=== PATIENT | female | born 1975 | race Caucasian/White ===

== ENCOUNTER 2023-09-15 15:01 | Emergency (ER) | payer MEDICAID ==
[~2023-09-15] VITALS: Ht 162.6 cm; Wt 75.0 kg
[2023-09-15] MEDS ORDERED: ondansetron 4mg rapidly disintigrating tab PO ONE (16:45)
[2023-09-15] MEDS: normal saline 1000ML IV soln IVB ONE (16:56)
[2023-09-15] MEDS: ondansetron/PF 4mg/2ml inj IV ONE (16:56)
[2023-09-15] MEDS: normal saline 1000ml 1,000 ML IV ONE (16:56)
[2023-09-15] MEDS: diphenhydrAMINE 50 mg/ml inj IV ONE (18:04)
[2023-09-15] MEDS: diazepam inj 5 MG/ML inj. IV ONE (18:04)
[2023-09-15 18:08] LABS: HEMATOCRIT 49.1 % (35.0-45.0); HEMOGLOBIN 16.1 g/dl (12.0-16.0)
[2023-09-15 18:09] LABS: BASOPHILS % (AUTO) 0.3 % (0-1); EOSINOPHILS # (AUTO) 0.1 X10'3 (0-0.9); EOSINOPHILS % (AUTO) 0.6 % (0-6); LYMPHOCYTES # (AUTO) 0.9 X10'3 (1.1-4.8); LYMPHOCYTES % (AUTO) 6.4 % (21-51); MEAN CORPUSCULAR HEMOGLOBIN 29.9 PG (27.0-31.0); MEAN CORPUSCULAR HGB CONC 32.7 g/dL (33.0-36.5); MEAN CORPUSCULAR VOLUME 91.3 FL (78-98); MEAN PLATELET VOLUME 7.1 FL (7.4-10.4); MONOCYTES # (AUTO) 0.7 X10'3 (0-0.9); MONOCYTES % (AUTO) 5.3 % (2-12); NEUTROPHILS # (AUTO) 11.8 X10'3 (1.8-7.7); NEUTROPHILS % (AUTO) 87.4 % (42-75); PLATELET COUNT 389 X10'3 (140-440); RED BLOOD COUNT 5.38 X10'6 (4.20-5.60); RED CELL DISTRIBUTION WIDTH 14.8 % (11.5-14.5); WHITE BLOOD COUNT 13.5 X10'3 (4.5-11.0)
[2023-09-15 18:17] LABS: ALBUMIN 3.5 G/DL (3.4-5.0); ANION GAP 14 (8-16); BLOOD UREA NITROGEN 12 MG/DL (7-18); BUN/CREATININE RATIO 13.8 (10.0-20.0); CALCIUM 8.7 MG/DL (8.5-10.1); CHLORIDE 106 MMOL/L (99-107); CREATININE 0.87 MG/DL (0.40-0.90); ETHANOL 123 MG/DL (<10); GLUCOSE 87 MG/DL (70-104); SODIUM 145 MMOL/L (135-145); TOTAL CARBON DIOXIDE 24.9 MMOL/L (24-32); eCRCL 68 ML/MIN; eGFR 69 ML/MIN
[2023-09-15 18:20] LABS: POTASSIUM 3.6 MMOL/L (3.5-5.1)
[2023-09-15] MEDS: mag hydrox/Alum hydrox/simeth 30ml oral suspension PO ONE (19:33)
[2023-09-15] MEDS: LIDOcaine 2% Viscous 15ml cup MM ONE (19:33)
[2023-09-15] MEDS: glycopyrrolate 0.2mg/ml inj IV ONE (19:34)
[2023-09-15 19:42] VITALS: RESP 17
[2023-09-15] MEDS: CefTRIAXone 2gm/D5W 50ml BAG 50 ML IV ONE (19:58)
[2023-09-15 20:25] LABS: BILIRUBIN,URINE NEGATIVE (Neg); CLARITY,URINE CLEAR (Clear); COLOR,URINE YELLOW (Yellow); GLUCOSE, URINE NEGATIVE (Neg); KETONES,URINE TRACE mg/dl (Neg); LEUKOCYTE ESTERASE ,URINE TRACE (Neg); NITRITES, URINE NEGATIVE (Neg); OCCULT BLOOD,URINE NEGATIVE (Neg); PROTEIN,URINE NEGATIVE (Neg); UROBILINOGEN,URINE 0.2 E.U/dL (0.2-1.0)
[2023-09-15 20:26] LABS: UA COLLECTION TYPE URINAL; URINE HCG NEGATIVE (NEG)
[2023-09-15 20:34] LABS: SQUAMOUS EPITHELIAL CELL,UR FEW /LPF (FEW)
[2023-09-15 20:35] LABS: BACTERIA,URINE FEW /HPF (Neg); RBC,URINE NONE SEEN /HPF (0-2); WBC,URINE 0-4 /HPF (0-4)
[2023-09-15 20:36] LABS: HYALINE CASTS 0-3 /LPF (NEGATIVE)
[2023-09-15 20:48] LABS: URINE AMPHETAMINE SCREEN POSITIVE (Neg); URINE BARBITUATE SCREEN NEGATIVE (Neg); URINE BENZODIAZEPINES SCREEN NEGATIVE (Neg); URINE CANNABINOID SCREEN NEGATIVE (Neg); URINE COCAINE SCREEN NEGATIVE (Neg); URINE METHADONE SCREEN NEGATIVE (Neg); URINE OPIATE SCREEN NEGATIVE (Neg); URINE PHENCYCLIDINE SCREEN NEGATIVE (Neg)
[2023-09-16 05:13] VITALS: BP 149/91; PULSE 98; TEMP 97.1; O2SAT 98
== END 2023-09-16 05:20 | disposition home or self-care (01) ==
LOC: ER 15:02 → EDBD 15:02 → ER 09-16 05:20
DX: E86.0 Dehydration (principal); Z20.822 Contact with and (suspected) exposure to COVID-19; F15.10 Other stimulant abuse, uncomplicated; R10.13 Epigastric pain
CPT/HCPCS: 36415; 80048; 80305; 80320; 81001; 81025; 84145; 85025; 87088; 87811; 96361; 96365; 96375; 99285; J0696; J1200; J2405; J3490; J7030

== ENCOUNTER 2023-09-19 14:21 | Emergency (ER) | payer MEDICAID ==
[~2023-09-19] VITALS: Ht 162.6 cm; Wt 48.0 kg
[2023-09-19 14:53] VITALS: TEMP 98
[2023-09-19] MEDS ORDERED: ketorolac trometh. 30mg/ml inj. IV ONE (16:50)
[2023-09-19] MEDS ORDERED: ketorolac tromethamine 15mg/ml inj. IV ONE (16:55)
[2023-09-19] MEDS: ketorolac tromethamine 15mg/ml inj. IM ONE (17:47)
[2023-09-19 17:51] LABS: ANION GAP 11 (8-16); BASOPHILS % (AUTO) 0.5 % (0-1); BLOOD UREA NITROGEN 11 MG/DL (7-18); BUN/CREATININE RATIO 12.5 (10.0-20.0); CALCIUM 8.1 MG/DL (8.5-10.1); CHLORIDE 104 MMOL/L (99-107); CREATININE 0.88 MG/DL (0.40-0.90); EOSINOPHILS # (AUTO) 0.1 X10'3 (0-0.9); EOSINOPHILS % (AUTO) 2.4 % (0-6); ETHANOL 26 MG/DL (<10); GLUCOSE 97 MG/DL (70-104); HEMOGLOBIN 14.2 g/dl (12.0-16.0); LYMPHOCYTES # (AUTO) 1.7 X10'3 (1.1-4.8); LYMPHOCYTES % (AUTO) 30.1 % (21-51); MEAN CORPUSCULAR HEMOGLOBIN 30.4 PG (27.0-31.0); MEAN CORPUSCULAR HGB CONC 33.7 g/dL (33.0-36.5); MEAN CORPUSCULAR VOLUME 90.3 FL (78-98); MEAN PLATELET VOLUME 6.5 FL (7.4-10.4); MONOCYTES # (AUTO) 0.8 X10'3 (0-0.9); MONOCYTES % (AUTO) 13.5 % (2-12); NEUTROPHILS # (AUTO) 3.1 X10'3 (1.8-7.7); NEUTROPHILS % (AUTO) 53.5 % (42-75); PLATELET COUNT 327 X10'3 (140-440); RED BLOOD COUNT 4.65 X10'6 (4.20-5.60); RED CELL DISTRIBUTION WIDTH 14.7 % (11.5-14.5); SALICYLATE 1.2 MG/DL (4.0-20.0); SODIUM 142 MMOL/L (135-145); TOTAL CARBON DIOXIDE 27.3 MMOL/L (24-32); WHITE BLOOD COUNT 5.7 X10'3 (4.5-11.0); eCRCL 59 ML/MIN; eGFR 68 ML/MIN
[2023-09-19 17:53] LABS: ACETAMINOPHEN < 2.0 UG/ML (10-30)
[2023-09-19 17:55] LABS: POTASSIUM 2.9 MMOL/L (3.5-5.1)
[2023-09-19 18:00] LABS: URINE HCG NEGATIVE (NEG)
[2023-09-19] MEDS: potassium Cl 20 mEq SR tablet PO ONE (18:10)
[2023-09-19] MEDS: potassium chloride 8mEq ER tablet PO ONE (18:11)
[2023-09-19 18:13] LABS: URINE AMPHETAMINE SCREEN POSITIVE (Neg); URINE BARBITUATE SCREEN NEGATIVE (Neg); URINE BENZODIAZEPINES SCREEN NEGATIVE (Neg); URINE CANNABINOID SCREEN NEGATIVE (Neg); URINE COCAINE SCREEN NEGATIVE (Neg); URINE METHADONE SCREEN NEGATIVE (Neg); URINE OPIATE SCREEN NEGATIVE (Neg); URINE PHENCYCLIDINE SCREEN NEGATIVE (Neg)
[2023-09-19 18:15] LABS: BILIRUBIN,URINE NEGATIVE (Neg); CLARITY,URINE CLOUDY (Clear); COLOR,URINE YELLOW (Yellow); GLUCOSE, URINE NEGATIVE (Neg); KETONES,URINE NEGATIVE (Neg); LEUKOCYTE ESTERASE ,URINE NEGATIVE (Neg); NITRITES, URINE NEGATIVE (Neg); OCCULT BLOOD,URINE NEGATIVE (Neg); PROTEIN,URINE NEGATIVE (Neg)
[2023-09-19 18:27] LABS: UA COLLECTION TYPE NON-SPECIFIED
[2023-09-19 18:29] LABS: RENAL CELLS, URINE FEW /HPF; SQUAMOUS EPITHELIAL CELL,UR MANY /LPF (FEW)
[2023-09-19 18:30] LABS: BACTERIA,URINE 3+ /HPF (Neg); CAL OXALATE CRYSTALS 4+ /HPF (NEGATIVE); MUCUS STRANDS MANY /LPF (Neg); RBC,URINE 0-2 /HPF (0-2); WBC,URINE 0-4 /HPF (0-4)
[2023-09-19 19:50] VITALS: BP 124/83; PULSE 87; RESP 16; O2SAT 99
== END 2023-09-19 20:54 | disposition home or self-care (01) ==
LOC: ER 14:21
DX: E87.6 Hypokalemia (principal); F19.10 Other psychoactive substance abuse, uncomplicated; Z59.00 Homelessness unspecified; F32.A Depression, unspecified; R45.1 Restlessness and agitation
CPT/HCPCS: 36415; 80048; 80305; 80320; 80329; 81001; 81025; 84132; 85025; 96372; 99285; J1885

== ENCOUNTER 2024-10-09 21:01 | Emergency (ER) | payer MEDICAID ==
[~2024-10-09] VITALS: Ht 162.6 cm; Wt 49.6 kg
[2024-10-09 21:15] VITALS: BP 147/71; PULSE 103; RESP 15; TEMP 96.8; O2SAT 98
== END 2024-10-09 21:53 | disposition left against medical advice (07) ==
LOC: ER 21:02
DX: S90.931A Unspecified superficial injury of right great toe, initial encounter (principal); Z53.21 Procedure and treatment not carried out due to patient leaving prior to being seen by health care provider; X58.XXXA Exposure to other specified factors, initial encounter; Y93.89 Activity, other specified; Y92.89 Other specified places as the place of occurrence of the external cause; Y99.8 Other external cause status